=== PATIENT | male | born 1980 | race Caucasian/White ===

== ENCOUNTER 2025-06-17 01:34 | Day surgery (SDC) | payer BC, SELFPAY ==
[2025-06-01 14:36] VITALS: BMI 27.3
[2025-06-17 06:38] VITALS: BP 117/78; PULSE 77; RESP 15; TEMP 36.3; O2SAT 100; BMI 26.6
[2025-06-17] MEDS: LACTATED RINGERS 1,000 ML 150 ML IV CONT (06:45)
--- NOTE | 2025-06-17 07:25 | PM.IMHP2 ---
H&P: HPI History of Present Illness Date/Time: 06/17/25 07:25 Chief Complaint: Screening colonoscopy Narrative: This is the patient's first colonoscopy. There are no GI symptoms and there is no family history of colorectal cancer. Review of Systems Review of Systems: All systems reviewed & are unremarkable except as noted in HPI and below [facility], [facility] Social History Social History Smoking status: Never smoker Alcohol intake: current Drinks per week: 1 Substance use: never Substance use type: does not use Living arrangements: with family Spiritual care concerns: No Meds Home Medications and Allergies Home Medications ?Medication ?Instructions ?Recorded ?Confirmed ?Type No Home Medications 06/01/25 06/01/25 History Allergies Allergy/AdvReac Type Severity Reaction Status Date / Time No Known Allergies Allergy Verified 06/17/25 06:37 Vital Signs Vital Signs - 24 hr 06/17/25 06:38 Temperature 97.3 F L Pulse Rate 77 Respiratory Rate 15 Blood Pressure 117/78 Pulse Oximetry 100 Oxygen Delivery Room Air Exam Const: General: cooperative and healthy appearing Resp: Effort & Inspection: normal respiratory effort and able to speak in complete sentences Auscultation: clear to auscultation bilaterally Cardio: Rate: regular rate Rhythm: regular rhythm GI: Inspection: normal to inspection GI Palp: No No hepatosplenomegaly present Auscultation: normal bowel sounds Rectal Exam: deferred Skin: General skin exam: normal color Psych: Appearance: grossly normal Mental Status: mental status grossly normal Assessment and Plan Assessment and plan (1) Encounter for screening colonoscopy: Code(s): Z12.11 - Encounter for screening for malignant neoplasm of colon Status: Acute Assessment and Plan: The patient is deemed a good candidate for the procedure. Consent signed. Will proceed. Prior Studies I have reviewed the following patient records and this information was taken into consideration when formulating the assessment and plan.: previous labs, previous ER visits, previous hospitalizations and previous clinic visits
--- NOTE | 2025-06-17 07:45 | P.PNAN_ITS ---
Anes - Initial Pre Proc Eval Procedure: Operation Date: 06/17/25 08:00 Proposed Procedures p Screening Colonoscopy - Arya Carreon MD Date/Time: 06/17/25 07:45 Surgeon: Arya Carreon MD Pre Op Diagnosis: Screening Patient Data Age: 44 Gender: M Height: 1.7 m Weight: 77 kg Last Vital Signs Temp 97.3 F L 06/17/25 06:38 Pulse 77 06/17/25 06:38 Resp 15 06/17/25 06:38 BP 117/78 06/17/25 06:38 Pulse Ox 100 06/17/25 06:38 O2 Del Method Room Air 06/17/25 06:38 Allergies Allergy/AdvReac Type Severity Reaction Status Date / Time No Known Allergies Allergy Verified 06/17/25 06:37 Home Medications ?Medication ?Instructions ?Recorded ?Confirmed ?Type No Home Medications 06/01/25 06/01/25 H istory Patient hx anesthesia problems: none Family hx anesthesia problems: none Results Review: All pre-operative results and documents have been reviewed as part of the pre- operative evaluation. [facility] Social History Social History Smoking status: Never smoker Alcohol intake: current Drinks per week: 1 Substance use: never Substance use type: does not use Living arrangements: with family Spiritual care concerns: No Anes - Eval Final PreProcedure Day of Procedure 06/17/25 07:45 Patient weight: normal Lungs: normal air movement Airway: Mallampati scale class 1 Neurological: alert and oriented Last oral intake: >/= 8 hours ASA classification: I Emergent: no Anesthetic plan: proceed Anesthesia type and monitoring: general GIVS and standard monitoring Results Review: All pre-operative results and documents have been reviewed as part of the pre- operative evaluation. Healthy, active, no cp or sob. Informed Consent: The patient's anesthetic plan and its attendant risks and benefits were discussed with the patient/family/POA. Questions were solicited and answers provided to the satisfaction of the patient/family/POA.
--- NOTE | 2025-06-17 08:12 | S_PTH ---
PATIENT: Wil Rivas LOC: [facility] U#:[id number] AGE/SX: 44/M ROOM: RE06/17/[address]: Arya Carreon MD : 1980 BED: DIS: 06/17/2025 SPEC #: [id number] RECD: 06/17/25 09:15 STATUS: NETTA MTZ #: [id number] CHRISTOPHER: 06/17/25 08:[address]: Arya Carreon DEPT: [facility] Surgical RECD BY: Aiyana Ugalde ENTERED: 06/17/25 09:16 SP TYPE: Surgical OTHR DR: Jose RodriguezMD Tissues: A - Colon Polypectomy Procedures: Hematoxylin and Eosin Stain Gross and Microscopic Level 4
[2025-06-17 08:15] VITALS: BP 94/66; PULSE 67; RESP 15; O2SAT 99
[2025-06-17 08:25] VITALS: BP 109/77; PULSE 69; RESP 15; O2SAT 100
[2025-06-17 08:35] VITALS: BP 117/75; PULSE 63; RESP 15; O2SAT 94
== END 2025-06-17 08:42 | disposition home or self-care (01) ==
PROVIDERS: PCP Internal Medicine Geriatric Medicine; Referring Provider Internal Medicine Geriatric Medicine; Visit Provider Internal Medicine Gastroenterology
PROC: 0DJD8ZZ Inspection of Lower Intestinal Tract, Via Natural or Artificial Opening Endoscopic (ICD-10-PCS; CPT 45378; principal; 2025-06-17 08:00)
DX: Z12.11 Encounter for screening for malignant neoplasm of colon (principal); D12.8 Benign neoplasm of rectum
CPT/HCPCS: 45385; 88305; J2003; J2704; J7120